=== PATIENT | female | born 1955 | race Caucasian/White ===

== ENCOUNTER 2022-02-20 17:11 | Inpatient (IN) ==
[2022-02-20] MEDS ORDERED: SODIUM CHLORIDE 0.9% 1,000 ML IV STA (18:06)
[2022-02-20] MEDS ORDERED: ONDANSETRON 4 MG/2 ML VIAL IV STA (18:06)
[2022-02-20] MEDS ORDERED: ONDANSETRON 4 MG/2 ML VIAL IV PRN (18:42)
[2022-02-20] MEDS: SODIUM CHLORIDE 0.9% 1,000 ML IV SCH (21:10)
[2022-02-20] MEDS: ENOXAPARIN 40 MG/0.4 ML SYRINGE SUBCUT SCH (21:10)
[2022-02-21] MEDS: ALBUTEROL/IPRATROPIUM 3 ML NEB RESP TX SCH ×5 (01:58→19:10)
[2022-02-21 05:41] LABS: Basophils % 0.2 % (0.0-0.8); Eosinophils # 0.1 10*3/uL (0.0-0.87); Eosinophils % 0.6 % (0.00-10.9); Hematocrit 32.1 VOL% (35.7-47.0); Hemoglobin 9.9 GM/DL (12.0-16.0); Immature Granulocytes % 0.7 %; Immature Granulocytes Absolute 0.06 #; Lymphocytes # 1.2 10*3/uL (1.4-4.0); Lymphocytes % 14.7 % (21.3-54.2); Mean Corpuscular HGB Conc 30.8 GM/DL (32-36); Mean Corpuscular Volume 91.7 FL (87-102); Mean Platelet Volume 10.6 FL (9.6-12.0); Monocytes # 0.8 10*3/uL (0.11-0.8); Monocytes % 9.8 % (1.7-12.7); Platelet Count 255 T/CUMM (130-400); White Blood Count 8.1 T/CUMM (4-12)
[2022-02-21 05:44] LABS: Calcium 8.2 MG/DL (8.5-10.1); Osmolality,Calculated 282.1 MOS/KG (273-304); Potassium 3.5 MMOL/L (3.5-5.1)
[2022-02-21 06:49] LABS: Anisocytosis 1+; Platelet Estimate Normal
[2022-02-21] MEDS: PANTOPRAZOLE 40 MG VIAL IV SCH (09:11)
[2022-02-21] MEDS: SODIUM CHLORIDE 0.9% 1,000 ML IV SCH ×2 (09:12→20:35)
[2022-02-21] MEDS: METOCLOPRAMIDE 10 MG/2 ML VIAL IV SCH ×3 (13:32→23:46)
[2022-02-21] MEDS: ENOXAPARIN 40 MG/0.4 ML SYRINGE SUBCUT SCH (20:35)
[2022-02-21] MEDS: HYDROmorphone 1 MG/1 ML SYRINGE IV PRN (23:55)
[2022-02-22] MEDS: ALBUTEROL/IPRATROPIUM 3 ML NEB RESP TX SCH ×4 (00:34→19:33)
[2022-02-22] MEDS: METOCLOPRAMIDE 10 MG/2 ML VIAL IV SCH ×4 (05:18→23:19)
[2022-02-22 06:08] LABS: Calcium 8.5 MG/DL (8.5-10.1); Osmolality,Calculated 275.5 MOS/KG (273-304); Potassium 3.6 MMOL/L (3.5-5.1)
[2022-02-22 06:30] LABS: Basophils % 0.3 % (0.0-0.8); Eosinophils # 0.1 10*3/uL (0.0-0.87); Eosinophils % 1.2 % (0.00-10.9); Hematocrit 34.4 VOL% (35.7-47.0); Hemoglobin 9.7 GM/DL (12.0-16.0); Immature Granulocytes % 1.1 %; Immature Granulocytes Absolute 0.08 #; Lymphocytes # 1.3 10*3/uL (1.4-4.0); Lymphocytes % 18.2 % (21.3-54.2); Mean Corpuscular HGB Conc 28.2 GM/DL (32-36); Mean Corpuscular Volume 98.9 FL (87-102); Monocytes # 0.9 10*3/uL (0.11-0.8); Monocytes % 12.6 % (1.7-12.7); Neutrophils % 66.6 % (38.7-73.9); Platelet Count 220 T/CUMM (130-400); Red Blood Count 3.48 MC/CUMM (3.8-5.5); Red Cell Distribution Width 17.6 % (9.3-17.3); White Blood Count 7.3 T/CUMM (4-12)
[2022-02-22] MEDS: PANTOPRAZOLE 40 MG VIAL IV SCH (08:08)
[2022-02-22] MEDS: MEROPENEM 500 MG in SODIUM CHLORIDE 0.9% 100 ML IV SCH ×3 (11:12→23:18)
[2022-02-22] MEDS: DOXYCYCLINE HYCLATE INJ 100 MG in SODIUM CHLORIDE 0.9% 100 ML IV SCH (12:22)
[2022-02-22] MEDS: guaiFENesin/DM ER 600-30 MG TABLET PO SCH ×2 (15:03→21:14)
[2022-02-22] MEDS: BENZONATATE 100 MG CAPSULE PO SCH ×2 (15:03→21:13)
[2022-02-22] MEDS: SODIUM CHLORIDE 0.9% 1,000 ML IV SCH (18:02)
[2022-02-22] MEDS: ENOXAPARIN 40 MG/0.4 ML SYRINGE SUBCUT SCH (21:14)
[2022-02-23] MEDS: ALBUTEROL/IPRATROPIUM 3 ML NEB RESP TX SCH ×4 (00:15→19:43)
[2022-02-23] MEDS: HYDROmorphone 1 MG/1 ML SYRINGE IV PRN ×2 (00:40→10:34)
[2022-02-23] MEDS: DOXYCYCLINE HYCLATE INJ 100 MG in SODIUM CHLORIDE 0.9% 100 ML IV SCH ×2 (00:57→13:55)
[2022-02-23] MEDS: MEROPENEM 500 MG in SODIUM CHLORIDE 0.9% 100 ML IV SCH ×3 (05:01→18:17)
[2022-02-23] MEDS: METOCLOPRAMIDE 10 MG/2 ML VIAL IV SCH ×3 (05:01→18:20)
[2022-02-23 06:23] LABS: Basophils % 0.3 % (0.0-0.8); Eosinophils # 0.1 10*3/uL (0.0-0.87); Eosinophils % 1.6 % (0.00-10.9); Hematocrit 31.4 VOL% (35.7-47.0); Hemoglobin 9.5 GM/DL (12.0-16.0); Immature Granulocytes % 1.1 %; Immature Granulocytes Absolute 0.07 #; Lymphocytes # 1.2 10*3/uL (1.4-4.0); Lymphocytes % 19.5 % (21.3-54.2); Mean Corpuscular HGB Conc 30.3 GM/DL (32-36); Mean Corpuscular Volume 91.5 FL (87-102); Mean Platelet Volume 10.2 FL (9.6-12.0); Monocytes # 0.8 10*3/uL (0.11-0.8); Neutrophils % 65.5 % (38.7-73.9); Platelet Count 238 T/CUMM (130-400); Red Blood Count 3.43 MC/CUMM (3.8-5.5); Red Cell Distribution Width 17.2 % (9.3-17.3); White Blood Count 6.3 T/CUMM (4-12)
[2022-02-23 06:34] LABS: Calcium 8.5 MG/DL (8.5-10.1); Potassium 3.2 MMOL/L (3.5-5.1)
[2022-02-23] MEDS: PANTOPRAZOLE 40 MG VIAL IV SCH (10:22)
[2022-02-23] MEDS: guaiFENesin/DM ER 600-30 MG TABLET PO SCH ×2 (10:35→21:25)
[2022-02-23] MEDS: BENZONATATE 100 MG CAPSULE PO SCH ×3 (10:35→21:25)
[2022-02-23] MEDS ORDERED: ACETAMINOPHEN 325 MG TABLET PO PRN (15:33)
[2022-02-23] MEDS ORDERED: ONDANSETRON ODT 4 MG TABLET PO PRN (15:37)
[2022-02-23] MEDS ORDERED: POTASSIUM CHLORIDE 20 MEQ TABLET PO ONE (15:37)
[2022-02-23] MEDS: FOLIC ACID 1 MG TABLET PO SCH (16:23)
[2022-02-23] MEDS: THEOPHYLLINE ER 300 MG TABLET PO SCH (16:23)
[2022-02-23] MEDS: allopurinoL 300 MG TABLET PO SCH (16:23)
[2022-02-23] MEDS: CYANOCOBALAMIN 500 MCG TABLET PO SCH (16:23)
[2022-02-23] MEDS: lisinopriL 10 MG TABLET PO SCH (16:23)
[2022-02-23] MEDS: CHOLECALCIFEROL 1,000 UNIT TABLET PO SCH (16:27)
[2022-02-23] MEDS: FUROSEMIDE 40 MG TABLET PO SCH (16:33)
[2022-02-23] MEDS: ACYCLOVIR 800 MG TABLET PO SCH (21:24)
[2022-02-23] MEDS: ENOXAPARIN 40 MG/0.4 ML SYRINGE SUBCUT SCH (21:25)
[2022-02-24] MEDS: MEROPENEM 500 MG in SODIUM CHLORIDE 0.9% 100 ML IV SCH ×4 (00:16→17:47)
[2022-02-24] MEDS: METOCLOPRAMIDE 10 MG/2 ML VIAL IV SCH ×4 (00:18→17:47)
[2022-02-24] MEDS: ALBUTEROL/IPRATROPIUM 3 ML NEB RESP TX SCH ×4 (00:38→19:42)
[2022-02-24] MEDS: DOXYCYCLINE HYCLATE INJ 100 MG in SODIUM CHLORIDE 0.9% 100 ML IV SCH ×2 (01:01→13:30)
[2022-02-24 06:08] LABS: Basophils % 0.3 % (0.0-0.8); Eosinophils # 0.1 10*3/uL (0.0-0.87); Eosinophils % 1.7 % (0.00-10.9); Hematocrit 29.1 VOL% (35.7-47.0); Immature Granulocytes % 0.6 %; Immature Granulocytes Absolute 0.04 #; Lymphocytes # 1.8 10*3/uL (1.4-4.0); Lymphocytes % 27.9 % (21.3-54.2); Mean Corpuscular HGB Conc 30.9 GM/DL (32-36); Mean Corpuscular Volume 90.1 FL (87-102); Mean Platelet Volume 9.8 FL (9.6-12.0); Monocytes # 0.6 10*3/uL (0.11-0.8); Monocytes % 10.1 % (1.7-12.7); Neutrophils % 59.4 % (38.7-73.9); Platelet Count 235 T/CUMM (130-400); Red Blood Count 3.23 MC/CUMM (3.8-5.5); Red Cell Distribution Width 17.2 % (9.3-17.3); White Blood Count 6.4 T/CUMM (4-12)
[2022-02-24 06:25] LABS: Calcium 8.5 MG/DL (8.5-10.1); Potassium 3.3 MMOL/L (3.5-5.1)
[2022-02-24] MEDS: PANTOPRAZOLE 40 MG VIAL IV SCH (08:52)
[2022-02-24] MEDS: BENZONATATE 100 MG CAPSULE PO SCH ×3 (08:53→21:50)
[2022-02-24] MEDS: guaiFENesin/DM ER 600-30 MG TABLET PO SCH ×2 (08:53→21:50)
[2022-02-24] MEDS: CHOLECALCIFEROL 1,000 UNIT TABLET PO SCH (08:53)
[2022-02-24] MEDS: lisinopriL 10 MG TABLET PO SCH (08:53)
[2022-02-24] MEDS: allopurinoL 300 MG TABLET PO SCH (08:53)
[2022-02-24] MEDS: THEOPHYLLINE ER 300 MG TABLET PO SCH ×2 (08:53→17:47)
[2022-02-24] MEDS: FOLIC ACID 1 MG TABLET PO SCH (08:53)
[2022-02-24] MEDS: POTASSIUM CHLORIDE 10 MEQ TABLET PO SCH (08:53)
[2022-02-24] MEDS: FUROSEMIDE 40 MG TABLET PO SCH (08:54)
[2022-02-24] MEDS: ACYCLOVIR 800 MG TABLET PO SCH ×3 (08:54→21:52)
[2022-02-24] MEDS: CYANOCOBALAMIN 500 MCG TABLET PO SCH (08:54)
[2022-02-24] MEDS ORDERED: MAGNESIUM SULF RIDER 2 GM/50 ML PREMIX IV ONE (13:00)
[2022-02-24] MEDS: ENOXAPARIN 40 MG/0.4 ML SYRINGE SUBCUT SCH (21:50)
[2022-02-25] MEDS: MEROPENEM 500 MG in SODIUM CHLORIDE 0.9% 100 ML IV SCH ×2 (00:08→06:13)
[2022-02-25] MEDS: METOCLOPRAMIDE 10 MG/2 ML VIAL IV SCH ×2 (00:09→06:13)
[2022-02-25] MEDS: SODIUM CHLORIDE 0.9% 1,000 ML IV SCH ×2 (00:11→09:48)
[2022-02-25] MEDS: ALBUTEROL/IPRATROPIUM 3 ML NEB RESP TX SCH ×2 (01:10→06:50)
[2022-02-25] MEDS: DOXYCYCLINE HYCLATE INJ 100 MG in SODIUM CHLORIDE 0.9% 100 ML IV SCH (01:18)
[2022-02-25 05:33] LABS: Basophils % 0.4 % (0.0-0.8); Eosinophils # 0.1 10*3/uL (0.0-0.87); Hematocrit 29.5 VOL% (35.7-47.0); Hemoglobin 9.2 GM/DL (12.0-16.0); Immature Granulocytes % 1.1 %; Immature Granulocytes Absolute 0.08 #; Lymphocytes # 2.4 10*3/uL (1.4-4.0); Lymphocytes % 33.7 % (21.3-54.2); Mean Corpuscular HGB Conc 31.2 GM/DL (32-36); Mean Corpuscular Volume 89.9 FL (87-102); Mean Platelet Volume 10.1 FL (9.6-12.0); Monocytes # 0.8 10*3/uL (0.11-0.8); Monocytes % 11.4 % (1.7-12.7); Neutrophils % 51.4 % (38.7-73.9); Platelet Count 264 T/CUMM (130-400); Red Blood Count 3.28 MC/CUMM (3.8-5.5); Red Cell Distribution Width 17.2 % (9.3-17.3)
[2022-02-25 05:57] LABS: Calcium 8.6 MG/DL (8.5-10.1); Osmolality,Calculated 282.1 MOS/KG (273-304)
[2022-02-25] MEDS: FOLIC ACID 1 MG TABLET PO SCH (09:44)
[2022-02-25] MEDS: POTASSIUM CHLORIDE 10 MEQ TABLET PO SCH (09:44)
[2022-02-25] MEDS: ACYCLOVIR 800 MG TABLET PO SCH (09:44)
[2022-02-25] MEDS: THEOPHYLLINE ER 300 MG TABLET PO SCH (09:44)
[2022-02-25] MEDS: CYANOCOBALAMIN 500 MCG TABLET PO SCH (09:44)
[2022-02-25] MEDS: allopurinoL 300 MG TABLET PO SCH (09:44)
[2022-02-25] MEDS: guaiFENesin/DM ER 600-30 MG TABLET PO SCH (09:44)
[2022-02-25] MEDS: FUROSEMIDE 40 MG TABLET PO SCH (09:45)
[2022-02-25] MEDS: PANTOPRAZOLE 40 MG VIAL IV SCH (09:45)
[2022-02-25] MEDS: CHOLECALCIFEROL 1,000 UNIT TABLET PO SCH (09:45)
[2022-02-25] MEDS: lisinopriL 10 MG TABLET PO SCH (09:45)
[2022-02-25] MEDS: BENZONATATE 100 MG CAPSULE PO SCH (09:45)
[2022-02-25 10:56] LABS: % Iron Saturation 7.9 % (18-50)
[2022-02-25] MEDS ORDERED: POTASSIUM CHLORIDE 20 MEQ TABLET PO ONE (11:00)
[2022-02-25 11:03] LABS: Folate 17.64 NG/ML (5.38-24.0)
[2022-02-25 11:33] VITALS: BP 119/53
[2022-02-27] MEDS ORDERED: METHOTREXATE 50 MG/2 ML VIAL SUBCUT SCH (09:00)
== END 2022-02-25 12:59 | disposition home or self-care (01) | DRG 389 ==
LOC: N.ED 17:11 → N.3E 17:11 → SUATTDRO 20:15
PROVIDERS: ADMIT Hospitalist; ATTEND Internal Medicine